=== PATIENT | male | born 1965 | race Two or more races ===

== ENCOUNTER 2025-08-13 10:44 | Outpatient (AMB) | payer OTHER, MEDICAID, SELFPAY ==
[2025-08-13 10:52] VITALS: BMI 29.4
--- NOTE | 2025-08-13 10:52 | A.PHYSOV_ITS ---
Vital Signs 08/13/25 10:52 Height 5 ft 10 in Weight 205 lb BMI 29.4 Intake Visit Reasons: 6M FUV Intake Note: 60 year old male here for his 6 month follow up visit on his back and neck pain. Today patient states his right side of neck pain is worse than sciatica pain Allergies No Known Allergies (No Known Allergies*) Allergy (Verified 08/13/25 10:50) Medication List - Last Reconciled 08/13/25 by Roberto Guzman, amitriptyline 25 mg PO BEDTIME amlodipine 5 mg PO DAILY cyclobenzaprine 10 mg PO TID PRN pregabalin mg PO simvastatin 10 mg PO BEDTIME HPI Comments Details: History of Present Illness The patient is a 60-year-old male presenting with persistent lower back pain referred to the right leg. The pain is associated with degenerative disc disease at the L5-S1 level, confirmed by a lumbosacral spine MRI on November 01, 2022, which also showed moderate facet arthropathy and a moderately large disc bulge with bilateral neural foraminal narrowing. The patient has a history of fibromyalgia and is currently on cyclobenzaprine. 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 A right L5 transforaminal injection on December 13, 2022, provided 40 to 60% pain relief at the time of the follow-up visit. He ambulates with a single-point cane and has been stable with his management. Meloxicam was discontinued after the patient was diagnosed with a transient ischemic attack (TIA) and possible microstroke. His blood pressure medications were adjusted, and he continues to take cyclobenzaprine. He has been having some pain and numbness in his right upper extremity. Cyclobenzaprine has been helpful for the most part. Occasionally it would make him drowsy. I reviewed his previous office notes. He will take ibuprofen occasionally as needed. However, it is not advisable with his past medical history. Pain Description - Onset: Persistent lower back pain referred to the right leg - Quality: Associated with degenerative disc disease and moderate facet arthropathy - Location: Lower back with radiation to the right leg - Relief: 40 to 60% pain relief from right L5 transforaminal injection Results - Imaging: Lumbosacral spine MRI on November 01, 2022, showed degenerative disc disease at L5-S1, moderate facet arthropathy, and moderately large disc bulge with bilateral neural foraminal narrowing [facility] Surgical History History of carpal tunnel release (Unknown) History of appendectomy (Unknown) Social History (Updated 08/13/25 @ 10:52 by Dora Kumar MA) Household Members: Spouse Alcohol intake: unknown Patient Tobacco Use Status: Never used Tobacco Current occupational status: retired Review of Systems Narrative Review of Systems - Musculoskeletal: Reports persistent lower back pain referred to the right leg - Neurological: Denies upper motor neuron signs Physical Exam Exam Exam: Physical Exam - General: Patient appears in acute distress, properly conversant and oriented - Musculoskeletal: Lumbar range of motion restricted in extension and side chayito ding - Neurological: Dural tension signs negative, distal pulses intact - Neurological: Non-focal examination of upper and lower extremities, no upper motor neuron signs - Neurological: Spurling maneuver positive on the right side - Cervical: Range of motion restricted in rotation and side bending to the right Vital Signs: BMI result Body Mass Index 29.4 Assessment & Plan Assessment & Plan (1) Cervical radiculitis: Code(s): M54.12 - Radiculopathy, cervical region Category: Medical (2) Lumbar radiculitis: Code(s): M54.16 - Radiculopathy, lumbar region Category: Medical (3) Lumbar disc herniation: Code(s): M51.26 - Other intervertebral disc displacement, lumbar region Category: Medical (4) Muscle spasm: Code(s): M62.838 - Other muscle spasm Category: Medical Plan Pain Management - Affect: Patient appears in acute distress - Analgesia: Currently on cyclobenzaprine and pregabalin, meloxicam discontinued - Adverse Effects: Meloxicam discontinued due to TIA diagnosis - Activities of Daily Living: Ambulates with a single-point cane, not working since 2021 Plan Patient was informed and verbally consented to the use of an ambient scribe for clinic note documentation during this visit. 1. Degenerative Disc Disease At L5-S1 The patient will continue with current pain management strategies, including cyclobenzaprine and pregabalin, to manage symptoms associated with degenerative disc disease at L5-S1. The right L5 transforaminal injection provided partial relief, and further injections may be considered based on symptom progression. 2. Fibromyalgia Management of fibromyalgia will continue with the current medication regimen, including cyclobenzaprine 3. Transient Ischemic Attack (Tia) Meloxicam was discontinued following the diagnosis of TIA, and blood pressure medications were adjusted to prevent future events. Discussion Notes During the visit, we discussed the patient's current pain management plan, including the continuation of cyclobenzaprine and pregabalin for degenerative disc disease and fibromyalgia. We reviewed the partial relief obtained from the right L5 transforaminal injection and considered the possibility of further injections if symptoms persist. The discontinuation of meloxicam due to the TIA diagnosis was also addressed, along with adjustments to blood pressure medications to mitigate future risks. Due to his prior history of TIA and possibly mini stroke, utilization of nonsteroidal anti-inflammatory medications is not recommended. Recommended daily supplementation with 2000 mg of turmeric with black pepper for anti-inflammatory effect. He will follow up in 6 months or sooner if necessary. Cyclobenzaprine was renewed today. Patient Instructions - Continue taking cyclobenzaprine and pregabalin as prescribed. - Monitor symptoms and report any changes or worsening of pain. - Follow up with primary care physician for blood pressure management. Medications: New cyclobenzaprine 10 mg PO TID PRN 270 tabs 1RF muscle spasm M51.26 - Other intervertebral disc displacement, lumbar region, M54.12 - Radiculopathy, cervical region, M54.16 - Radiculopathy, lumbar region, M62.838 - Other muscle spasm Coding Level of Care Code Est Pt Level 4 (05522) Complex EM visit Add On G2211 Diagnoses Cervical radiculitis M54.12 Lumbar radiculitis M54.16 Lumbar disc herniation M51.26 Muscle spasm M62.838
--- OUTSIDE RECORDS SUMMARY | 2025-08-13 12:26 | XMS_ITS | Encounter Summary ---
Author Organization [employer] Address [address] [place] [address] Care Team Providers Care District Fire Chief Name Role Phone Unavailable Primary Care Provider Unavailabl e Encounter Details Date Type Department Care Team (Latest Contact Info) Description 11/21/2019 Abstract [facility] CONVERSIONS Dental, Provider, DDS Social History Tobacco Use Types Packs/Day Years Used Date Smoking Tobacco: Never Assessed Sex and Gender Information Value Date Recorded Sex Assigned at Male 08/02/2022 10:35 AM EDT Legal Sex Male 10:35 AM EDT Gender Identity Male 08/02/2022 10:35 AM EDT Sexual Orientation Straight 08/02/2022 10 :35 AM EDT documented as of this encounter Plan of Treatment Upcoming Encounters Date Type Department Care Team (Late st Contact Info) Description 12/06/2025 9:30 AM EST Office Visit [facility] ADULT DENTAL [address] [place] [address] Jan Cano documented as of this encounter Visit Diagnoses Not on filedocumented in this encounter
--- OUTSIDE RECORDS SUMMARY | 2025-08-13 12:26 | XMS_ITS | Clinical Summary ---
Author Organization [employer] Address [address] [facility] [address] [place] [address] Care Team Providers Care Accordion Repairer Name Role Phone Unavailable Primary Care Provider Unavailabl e Allergies No known active allergies Medications pregabalin (Lyrica) 75 MG capsule PLEASE SEE ATTACHED FOR DETAILED DIRECTIONS 3 Active simvastatin (Zocor) 10 MG tablet Take 10 mg by mouth at bedtime. 3 Active meloxicam (Mobic) 15 MG tablet Take 15 mg by mouth in the morning. 3 Active cyclobenzaprine (Flexeril) 10 MG tablet TAKE 1 TABLET BY MOUTH AT BEDTIME NEEDED FOR MUSCLE SPASMS. 3 Active amLODIPine (Norvasc) 2.5 MG tablet Take 2.5 mg by mouth in the morning. 3 Active gabapentin (Neurontin) 300 MG capsule TAKE 1 CAPSULE BY MOUTH DAILY NEEDED (PAIN). 3 Active amitriptyline (Elavil) 25 MG tablet Take 25 mg by mouth at bedtime. 3 Active amLODIPine (Norvasc) 2.5 MG tablet Take 1 tablet by mouth at bed time. Active pregabalin (Lyrica) 225 MG capsule 4 Active Active Problems No known active problems Encounters Date Type Department Care Team Description 07/04/2025 10:00 AM EDT Office Visit [facility] ADULT DENTAL [address] [place] [address] Stuart Burns DDS 06/07/2025 10:00 AM EDT Office Visit [facility] ADULT DENTAL [address] [place] [address] Jan Cano Dental calculus (Primary Dx) from Last 3 Months Social History Tobacco Use Types Packs/Day Years Used Date Smoking Tobacco: Never Smokeless Tobacco: Never Tobacco Cessation:Counseling Given: Not Answered Sex and Gender Information Value Date Recorded Sex Assigned at Male 08/02/2022 10:35 AM EDT Legal Sex Male 10:35 AM EDT Gender Identity Male 08/02/2022 10:35 AM EDT Sexual Orientation Straight 08/02/2022 10 :35 AM EDT Last Filed Vital Signs Vital Sign Reading Time Taken Comments Blood Pressure 132/78 07/04/2025 10:09 AM EDT Pulse 66 06/07/2025 10:09 AM EDT Temperature - - Respiratory Rate - - Oxygen Saturation - - Inhaled Oxygen Concentration - - Weight - - Height - - Body Mass Index - - Plan of Treatment Upcoming Encounters Date Type Department Care Team (Late st Contact Info) Description 12/06/2025 9:30 AM EST Office Visit [facility] ADULT DENTAL [address] [place] [address] Jan Cano Health Maintenance Due Date Last Done Comments CT Colonography 1966 Colonoscopy 1966 Colorectal Cancer Screening 1966 Depression Screening 1966 FIT DNA/Cologuard 1966 FIT 1966 FOBT 1966 HIV Screening 1966 Lipid Panel 1966 SDOH Screening 1966 Sigmoidoscopy 1966 Disability Screening 1966 Alcohol/Substance Use Screening 1978 Hepatitis C Screening 1984 Hepatitis B Vaccines (1 of 3 - 19+ 3-dose series) 1985 Pneumococcal Vaccine: 50+ Years (1 of 1 - PCV) 2016 COVID-19 Vaccine (2 - 2024- season) 2025 01/12/2021 Influenza Vaccine (#1) 2025 Dental X-Ray: Bitewings 11/24/2025 11/23/19 25, 08/12/2023, 04/23/2019 Dental Oral Exam 12/06/2025 06/07/2025, , 01/24/2024, Additional history exists Dental Prophylaxis 12/06/2025 06/07/2025, 0 11/23/2024, 02/08/2024, Additional history exists Tobacco Screening 07/04/2026 07/04/2025 Dental X-Ray: Full Mouth 11/24/2027 11/23/2024, 04/03 DTaP/Tdap/Td Vaccines (3 - Td or Tdap) 07/12/2033 07/12/2023, 09/01/2010 RSV Patients and Patients Aged 60 years or older (1 - 1-dose 75+ series) 2041 Zoster Vaccines Completed 05/14/2024, 01/25/2024 HIB Vaccines Aged Out No longer eligi ble based on patient's age to complete this topic HPV Vaccines Aged Out No longer eligi ble based on patient's age to complete this topic Hepatitis A Vaccines Aged Out No long er eligible based on patient's age to complete this topic IPV Vaccines Aged Out No longer eligi ble based on patient's age to complete this topic Meningococcal B Vaccine Aged Out No l onger eligible based on patient's age to complete this topic Meningococcal Vaccine Aged Out No maame titus eligible based on patient's age to complete this topic RSV under 20 months Aged Out No longe r eligible based on patient's age to complete this topic Rotavirus Vaccines Aged Out No longer eligible based on patient's age to complete this topic Procedures Procedure Name Priority Date/Time Associated Diagnosis Comments 2 MOBL RESIN-BASED COMPOSITE - 4+ SURF, POSTERIOR Routine 07/04/2025 10:00 AM EDT CASE PRESENTATION, DETAILED AND EXTENSIVE TREATMENT PLANNING Routine 07/04/2025 10:00 AM EDT ORAL HYGIENE INSTRUCTIONS Routine 2024 10:00 AM EDT CASE PRESENTATION, DETAILED AND EXTENSIVE TREATMENT PLANNING Routine 06/07/2025 10:00 AM EDT PERIODIC ORAL EVALUATION - ESTABLISHED PATIENT Routine 06/07/2025 10:00 AM EDT PROPHYLAXIS - ADULT Routine 06/07/2025 1 0:00 AM EDT INTRAORAL - COMPLETE SERIES OF RADIOGRAPHIC IMAGES Routine 11/23/2024 11:00 AM EST from Last 3 Months or Most Recently Relevant to Health Maintenance Insurance [place] AD[place]
--- OUTSIDE RECORDS SUMMARY | 2025-08-13 12:26 | XMS_ITS | Encounter Summary ---
Author Organization [employer] Address [address] [facility] [address] [place] [address] Care Team Providers Care Client Service Professional Name Role Phone Unavailable Primary Care Provider Unavailabl e Encounter Details Date Type Department Care Team (Latest Contact Info) Description 04/23/2019 Abstract [facility] CONVERSIONS Dental, Provider, DDS Social History Tobacco [...] Description 12/06/2025 9:30 AM EST Office Visit [facility] ADULT DENTAL [address] [place] [address] Jan Cano documented as of this encounter Visit Diagnoses Not on filedocumented in this encounter
--- OUTSIDE RECORDS SUMMARY | 2025-08-13 12:26 | XMS_ITS | Clinical Summary ---
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 Life supply-pressure 6-16 Active cyclobenzaprine (FLEXERIL) 10 mg tablet TAKE 1 TABLET BY MOUTH AT BEDTIME NEEDED FOR MUSCLE SPASMS. 4 Active meloxicam (MOBIC) 15 mg tablet Take 1 Tablet by mouth daily. 4 Active pregabalin (LYRICA) 225 mg capsule TAKE 1 CAPSULE BY MOUTH AT BEDTIME MAY CAUSE DROWSINESS, DO NOT DRIVE OR OPERATE HEAVY MACHINERY 3 Active amLODIPine (NORVASC) 5 mg tablet Take 1 tablet (5 mg total) by mouth 1 (one) time each day. 90 tablet 1 5 Active simvastatin (ZOCOR) 10 mg tablet Take 1 tablet (10 mg total) by mouth at bedtime. 90 tablet 1 5 Active amitriptyline (ELAVIL) 25 mg tablet Take 1 tablet (25 mg total) by mouth at bedtime. 90 tablet 5 Active sodium,potassiu m,mag sulfates (Suprep Bowel Prep Kit) 17.5-3.13-1.6 gram recon soln bowel prep kit oral solution Take 177ML by mouth for 2 doses. SEE INSTRUCTIONS PROVIDED BY OFFICE. 1 kit Active Active Problems Problem Noted Date Diagnosed Date Overweight (BMI 25.0-29.9) 10/28/2024 Lumbar degenerative disc disease 11/12/2022 Overview (08/13/2024): Last Assessment & Plan: Mr. Jessica has low back pain as well as some pain and tingling in the right lower extremity. By MRI analysis he has degenerative changes including desiccation and loss of height at L5-S1 worse than at L4-5. There is mild bilateral lateral recess stenosis at L5-S1 but no nerve root impingement. He is not a candidate for neurosurgical intervention at this time and I think most of his pain is actually coming from the hip, bursitis, and sacroiliitis. He is welcome to follow-up with us in the future on an as-needed basis. Right hip pain 11/12/2022 Overview (08/13/2024): Last Assessment & Plan: Mr. Jessica had pain in his right leg with internal and external rotation of the right hip. I will send him for x-rays of the right hip. He will follow-up with Asa Escobar PA-C regarding his hip pain, bursitis, and sacroiliitis. Sacroiliitis ([facility] V24) 11/12/2022 Overview (08/13/2024): Last Assessment & Plan: Mr. Jessica had significant reproduction of his pain with palpation of the right SI joint. I gave him a prescription for physical therapy and he may benefit from a right SI joint injection. Trochanteric bursitis of right hip 11/12/2022 Overview (08/13/2024): Last Assessment & Plan: Mr. Jessica had pain with palpation of his right greater trochanteric bursa. We discussed anti-inflammatory use. I gave him a prescription for physical therapy and he may benefit from a steroid injection. 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 Associated with likely false positive MARA. Fibromyalgia 03/24/2021 Overview (08/13/2024): [facility] Bilateral carpal tunnel syndrome 11/21/2020 Overview (08/13/2024): NCV 11/21/2020 Obstructive sleep apnea 04/04/2017 Overview (08/13/2024): [facility] Polysomnogram: Date 03/29/2017; Wt 208# SE 86%; SM 88%; REM 22%; RDI 25 (AHI 23), worse in nonREM (RDI 25 - AHI 23), Central apneas 0; Obstructive apneas 39; Mixed apneas 0; hypopneas 92; RERAs 12; average oxygen saturation 94% (lowest 79% - without saturations <88% for 5% or more of study); PLMs 3. Essential hypertension 02/07/2017 Encounters Date Type Department Care Team Description 07/25/2025 9:51 AM EDT Anesthesia Event [facility] [address] [place] [phone] Tristan Thompson MD 07/25/2025 7:52 AM EDT - 07/25/2025 11:59 PM EDT Hospital Encounter [facility] [address] [place] [phone] Nora Silvestre MD Dasilva, John E, MD Steele, Matthew G, CRNA Hx of colonic polyps Discharge Disposition: Home or Self Care 07/23/2025 Telephone Pulmonology - [place] [address] [facility] [address] [place] [phone] Adela Sanchez, SERGEY from Last 3 Months Immunizations Immunization Administration Dates Next Due [facility]/Interventional Imaging SARS-CoV-2 COVID -19, vector-nr, rS-Ad26, preservative free 01/12/2021 Tdap Tetanus diptheria acell ular pertussis (Boostrix; Adacel) 7yo and older 07/12/2023,09/01/2010 Zoster recombinant (Shingrix) 19yo and older 09/2024,01/25/2024 Surgical History Surgery Date Site/Laterality Comments APPENDECTOMY 1999 PROCEDURE: HISTORICAL APPENDECTOMY Medical History Medical History Date Comments DDD (degenerative disc disea se), cervical 07/02/2022 DX:DDD (degenerative disc di sease), cervical; COMMENT: With radiculopathy HTN (hypertension) CASTILLO (obstructive sleep apnea) Fibromyalgia Carpal tunnel syndrome Trochanteric bursitis of right hip Sacroiliitis (CMS/HCC V24) Hyperlipemia Anticardiolipin antibody positive Family History Medical History Relation Name Comments Diabetes Father peripheral vasc ular disease Asthma Mother Breast cancer Neg Hx Colon cancer Neg Hx Prostate cancer Neg Hx Relation Name Status Comments Father Mother Alive Social History Tobacco Use Types Packs/Day Years Used Date Smoking Tobacco: Never Smokeless Tobacco: Never Tobacco Cessation:Counseling Given: Not Answered Alcohol Use Standard Drinks/Week Comments Yes 3 (1 standard drink = 0.6 oz pur e alcohol) Housing Instability Answer Date Recorde d Are you worried that in the next 2 months you may not have stable housing? No 05/08/2025 Food Access & Nutrition Answer Date Rec orded Do you have access to a vari ety of food including fruits and vegetables? Yes 05/08/2025 Health Literacy Answer Date Recorded How often do you need to hav e someone help you when you read instructions, pamphlets, or other written material from your doctor or pharmacy? Never 05/08/2025 Caregiver: How often do you need to have someone help you when you read instructions, pamphlets, or other written material from your doctor or pharmacy? Not on file 05/08/2025 Financial Risk Answer Date Recorded How hard is it for you to pa y for the very basics like food, housing, medical care, and air conditioning / heating? Not very hard 05/08/2025 Transportation Answer Date Recorded Has the lack of transportati on kept you from meetings, work, or from getting things needed for daily living? No Has the lack of transportati on kept you from medical appointments or from getting medications? No 05/08/2025 Social Isolation Answer Date Recorded How often do you feel lonely or isolated from th ose around you? Never 05/08/2025 Food Risk Answer Date Recorded Within the past 12 months we worried whether our food would run out before we got money to buy more. Never true 05/08/2025 Within the past 12 months th e food we bought just didn't last and we didn't have money to get more. Never true 05/08/2025 Dependent Care Answer Date Recorded Do you need help finding or paying for care for your loved ones. For example, child care worker or elderly care for an older adult? No 05/08/2025 Education Answer Date Recorded Do you think completing more education or training, like finishing a GED, going to college, or learning a trade, would be helpful for you? No 05/08/2025 Employment and Income Answer Date Recor ded During the last four weeks, have you been actively looking for work? No 05/08/2025 Living Situation Answer Date Recorded What is your living situation? Unrecognized valu e 05/08/2025 Interpersonal Safety Answer Date Record ed Physical Abuse Unrecognized value 07/25/2025 Verbal Abuse Unrecognized value 07/25/2025 Sex and Gender Information Value Date Recorded Sex Assigned at Not on file Legal Sex Male 10:47 PM EST Gender Identity Not on file Sexual Orientation Not on file Obstetrics History Last Filed Vital Signs Vital Sign Reading Time Taken Comments Blood Pressure 129/89 07/25/2025 10:40 AM EDT Pulse 76 07/25/2025 10:40 AM EDT Temperature 36.3 C (97.3 F) 07/25/2025 8:41 AM EDT Respiratory Rate 18 07/25/2025 10:40 AM EDT Oxygen Saturation 100% 07/25/2025 10:40 AM EDT Inhaled Oxygen Concentration - - Weight 93 kg (205 lb) 07/25/2025 8:41 AM EDT Height 177.8 cm (5' 10 ) 07/25/2025 8:41 AM EDT Body Mass Index 29.41 07/25/2025 8:41 AM EDT Plan of Treatment Upcoming Encounters Date Type Department Care Team (Late st Contact Info) Description 11/08/2025 11:25 AM EST Office Visit Pulmonology - [place] [address] [place] [address] Adela Sanchez NP [address] [place] [address] 11/12/2025 11:00 AM EST Office Visit Adult Medicine [facility] [address] [place] [phone] Karen Coker MD [address] [place] [phone] Health Maintenance Due Date Last Done Comments Hepatitis B Vaccines (1 of 3 - 19+ 3-dose series) 1985 Pneumococcal Vaccine: 50+ Years (1 of 1 - PCV) 2016 Influenza Vaccine (#1) 2025 Hypertension/CHF/CAD Annual BMP Blood Test 10/29/2025 10/29/2024, 07/14/2023 Social Influencers of Health Screening 05/08/2026 05/08/2025 Cholesterol Screening (Lipid Panel) 10/29/2029 10/29/2024, 07/14/2023 Colorectal Cancer Screening: Colonoscopy 07/25/2030 07/25/2025, 09/25/2019 Medicare Annual Wellness Visit 2031 Postponed from 09/11 (Not clinically appropriate to address at this time) DTaP,Tdap,and Td Vaccines (3 - Td or Tdap) 07/12/2033 07/12/2023, 09/01/2010 RSV Immunization Adult Patients (1 - 1-dose 75+ series) 2041 HIV Screening Completed 04/26/2019 Hepatitis C Screening Completed 04/26/2019 COVID-19 Vaccine Discontinued 01/12/2021 Zoster Vaccines Completed 05/14/2024, 01/25/2024 Depression Screening Completed 05/08/2025, 04/04/2024 HIB Vaccines Aged Out No longer eligi [...] on patient's age to complete this topic MMR Vaccines Aged Out No longer eligi ble based on patient's age to complete this topic Meningococcal ACWY Vaccine Aged Out N o longer eligible based on patient's age to complete this topic Meningococcal B Vaccine Aged Out No l onger eligible based on patient's age to complete this topic RSV Immunization Patients Under 20 months Aged Out No longer eligible b ased on patient's age to complete this topic Varicella Vaccines Aged Out No longer eligible based on patient's age to complete this topic Goals Goal Patient Goal Type Associated Problems Recent Progress Patient-Stated? Author Autogenera amanda Goal Care Plan Autogenerated Problem No SonaliAlison Procedures Procedure Name Priority Date/Time Associated Diagnosis Comments COLONOSCOPY Routine 07/25/2025 10:19 AM EDT Hx of colonic polyps TISSUE EXAM Routine 07/25/2025 10:06 AM EDT Hx of colonic polyps COMPREHENSIVE METABOLIC PANEL Routine 10/29/2024 9:55 AM EST Essential hypertension LIPID PANEL WITH REFLEX TO DIRECT LDL Routine 10/29/2024 9:55 AM EST Essential hypertension DEPRESSION SCREENING Routine 04/04/2024 HEPATITIS C SCREENING Routine 04/26/2019 HIV SCREENING Routine 04/26/2019 from Last 3 Months or Most Recently Relevant to Health Maintenance Results * COLONOSCOPY Anesthesia - MAC; [facility] (07/25/2025 10:19 AM EDT) Anatomical Region Laterality Modality Endoscopy 07/25/2025 9:57 AM EDT Impressions 07/25/2025 10:21 AM EDT - Two diminutive polyps in the sigmoid colon and in the cecum, removed with a cold snare. Resected and retrieved. - The examination was otherwise normal on direct and retroflexion views. Recommendation: - Discharge patient to home. - Await pathology results. - Repeat colonoscopy in 7-10 years for surveillance. Narrative 07/25/2025 10:21 AM EDT [facility] Patient Name: Bo Jessica Procedure Date: 07/25/2025 9:57 AM Date of : 1965 Age: 60 Gender: Male Note Status: Finalized Attending MD: Nora Silvestre MD, Procedure Date No Time: 07/25/2025 Procedure: Colonoscopy Indications: High risk colon cancer surveillance: Personal history of colonic polyps Providers: Nora Silvestre MD Referring MD: Nora Silvestre MD Medicines: Monitored Anesthesia Care Complications: No immediate complications. Estimated blood loss: Minimal. Estimated Blood Loss: Estimated blood loss was minimal. Procedure: Pre-Anesthesia Assessment: - Prior to the procedure, a History and Physical was performed, and patient medications and allergies were reviewed. The patient is competent. The risks and benefits of the procedure and the sedation options and risks were discussed with the patient. All questions were answered and informed consent was obtained. Patient identification and proposed procedure were verified by the physician, the nurse, the tetryl blender operator and the automotive technician in the pre-procedure area in the endoscopy suite. Mental Status Examination: alert and oriented. Airway Examination: normal oropharyngeal airway and neck mobility. Respiratory Examination: clear to auscultation. CV Examination: normal. Prophylactic Antibiotics: The patient does not require prophylactic antibiotics. Prior Anticoagulants: The patient has taken no anticoagulant or antiplatelet agents. ASA Grade Assessment: II - A patient with mild systemic disease. After reviewing the risks and benefits, the patient was deemed in satisfactory condition to undergo the procedure. The anesthesia plan was to use monitored anesthesia care (MAC). Immediately prior to administration of medications, the patient was re-assessed for adequacy to receive sedatives. The heart rate, respiratory rate, oxygen saturations, blood pressure, adequacy of pulmonary ventilation, and response to care were monitored throughout the procedure. The physical status of the patient was re-assessed after the procedure. After I obtained informed consent, the scope was passed under direct vision. Throughout the procedure, the patient's blood pressure, pulse, and oxygen saturations were monitored continuously. The Olympus Colonoscope was introduced through the anus and advanced to the cecum, identified by appendiceal orifice and ileocecal valve. The colonoscopy was performed without difficulty. The patient tolerated the procedure well. The quality of the bowel preparation was good. Findings: The perianal and digital rectal examinations were normal. Two sessile polyps were found in the sigmoid colon and cecum. The polyps were diminutive in size. These polyps were removed with a cold snare. Resection and retrieval were complete. Estimated blood loss was minimal. The exam was otherwise without abnormality on direct and retroflexion views. Procedure Code(s): --- Professional --- 88424, Colonoscopy, flexible; with removal of tumor(s), polyp(s), or other lesion(s) by snare technique Diagnosis Code(s): --- Professional --- D12.5, Benign neoplasm of sigmoid colon D12.0, Benign neoplasm of cecum CPT copyright 2020 [employer]. All rights reserved. The codes documented in this report are preliminary and upon blasting miner review may be revised to meet current compliance requirements. Nora Silvestre MD 07/25/2025 10:20:51 AM This report has been signed electronically.Nora Silvestre MD Number of Addenda: 0 Note Initiated On: 07/25/2025 9:57 AM Scope Withdrawal Time: 0 hours 14 minutes 44 seconds Scope In: 10:01:27 AM Scope Out: 10:17:31 AM Endoscopy Department at [facility] - [address] [place] [phone] Procedure Note Nora Silvestre MD - 07/25/2025 [facility] GI Patient Name: Bo Jessica Procedure Date: 07/25/2025 9:57 AM Date of : 1965 Age: 60 Gender: Male Note Status: Finalized Attending MD: Nora Silvestre MD, Procedure Date No Time: 07/25/2025 Procedure: Colonoscopy Indications: High risk colon cancer surveillance: Personalhistory of colonic polyps Providers: Nora Silvestre MD Referring MD: Nora Silvestre MD Medicines: Monitored Anesthesia Care Complications: No immediate complications. Estimated blood loss: Minimal. Estimated Blood Loss: Estimated blood loss was minimal. Procedure: Pre-Anesthesia Assessment: - Prior to the procedure, a History and Physicalwas performed, and patient medications and allergieswere reviewed. The patient is competent. The risks and benefits of the procedure and the sedation optionsand risks were discussed with the patient. Allquestions were answered and informed consent was obtained. Patient identification and proposed procedure were verified by the physician, the nurse, theanesthetist and the automotive technician in the pre-procedure area in the endoscopy suite. Mental Status Examination: alertand oriented. Airway Examination: normal oropharyngeal airway and neck mobility. Respiratory Examination: clear to auscultation. CV Examination: normal. Prophylactic Antibiotics: The patient does notrequire prophylactic antibiotics. Prior Anticoagulants: The patient has taken no anticoagulant or antiplatelet agents. ASA Grade Assessment: II - A patient withmild systemic disease. After reviewing the risks and benefits, the patient was deemed in satisfactory condition to undergo the procedure. The anesthesia plan was to use monitored anesthesia care (MAC). Immediately prior to administration of medications, the patient was re-assessed for adequacy to receive sedatives. The heart rate, respiratory rate, oxygen saturations, blood pressure, adequacy of pulmonary ventilation, and response to care were monitored throughout the procedure. The physical status ofthe patient was re-assessed after the procedure. After I obtained informed consent, the scope was passed under direct vision. Throughout theprocedure, the patient's blood pressure, pulse, and oxygen saturations were monitored continuously. TheOlympus Colonoscope was introduced through the anus and advanced to the cecum, identified by appendiceal orifice and ileocecal valve. The colonoscopy was performed without difficulty. The patient tolerated the procedure well. The quality of the bowel preparation was good. Findings: The perianal and digital rectal examinations were normal. Two sessile polyps were found in the sigmoid colonand cecum. The polyps were diminutive in size. These polyps were removed with a cold snare. Resectionand retrieval were complete. Estimated blood loss was minimal. The exam was otherwise without abnormality ondirect and retroflexion views. Procedure Code(s): --- Professional --- 26649, Colonoscopy, flexible; with removal of tumor(s), polyp(s), or other lesion(s) by snare technique Diagnosis Code(s): --- Professional --- D12.5, Benign neoplasm of sigmoid colon D12.0, Benign neoplasm of cecum CPT copyright 2020 [employer]. All rights reserved. The codes documented in this report are preliminary and upon blasting miner reviewmay be revised to meet current compliance requirements. Nora Silvestre MD 07/25/2025 10:20:51 AM This report has been signed electronically.Nora Silvestre MD Number of Addenda: 0 Note Initiated On: 07/25/2025 9:57 AM Scope Withdrawal Time: 0 hours 14 minutes 44 seconds Scope In: 10:01:27 AM Scope Out: 10:17:31 AM Endoscopy Department at [facility] - [address] [place] [phone] IMPRESSION: - Two diminutive polyps in the sigmoid colon and in the cecum, removed with a cold snare. Resected and retrieved. - The examination was otherwise normal on directand retroflexion views. Recommendation: - Discharge patient to home. - Await pathology results. - Repeat colonoscopy in 7-10 years forsurveillance. Nora Silvestre MD GI~PROCEDURE ORDERABLES Fin al Result * Tissue exam (07/25/2025 10:06 AM EDT) Final Diagnosis A. Large Intestine, Cecum, polyp x1 via cold snare: - Tubular adenoma. B. Large Intestine, Sigmoid Colon, polyp x1 via cold snare: - Tubular adenoma. 07/26/2025 10:20 AM EDT [facility] at 1020 EDT Gross Description A. Large Intestine, Cecum, polyp x1 via cold snare: Labeled polyp x 1 colon cecum . Received in formalin are two soft, camacho, polypoid tissue fragments measuring approximately 0.25-0.3 cm in greatest diameter, which are wrapped in paper and submitted in toto in one cassette, two pieces, multiple levels. B. Large Intestine, Sigmoid Colon, polyp x1 via cold snare: Labeled polyp x 1 Sig colon . Received in formalin are two soft, friable, camacho, polypoid tissue fragments measuring 0.15 cm and 0.45 cm in greatest diameter, which are wrapped in paper and submitted in toto in one cassette, two pieces, multiple levels. TS 07/26/2025 10:20 AM EDT [facility] Disclaimer Unless otherwise specified, all tissue is 10% NB formalin fixed and paraffin embedded. 07/26/2025 10:20 AM EDT [facility] Tissue Cecum structure / Unknown 07/25/2025 10:06 AM EDT 07/25/2025 11:11 AM EDT Tissue specimen (specimen) Sigmoid colon structure / Unknown 07/25/2025 10:15 AM EDT 07/25/2025 11:11 AM EDT us Nora Silvestre MD LAB PATHOLOGY ORDERABLES Fi nal Result [facility] [address] [place] [address], [place] [phone] * (ABNORMAL) Lipid panel with reflex to direct LDL (10/29/2024 9:55 AM EST) Cholesterol 115 0 - 200 mg/dL LAB CHEMISTRY METHOD 10/29/2024 3:29 PM [facility] Triglycerides 120 0 - 150 mg/dL LAB CHEMISTRY METHOD 10/29/2024 3:29 PM [facility] HDL 32(L) >=40 mg/dL LAB CHEMISTRY METHOD 10/29/2024 3:29 PM [facility] LDL Calculated 59 0 - 100 mg/dL LAB CHEMISTRY METHOD 10/29/2024 3:29 PM [facility] VLDL Cholesterol Marcos 24 mg/dL LAB CHEMISTRY METHOD 10/29/2024 3:29 PM [facility] Non HDL Chol. (LDL+VLDL) 83 <145 mg/dL LAB CHEMISTRY METHOD 10/29/2024 3:29 PM [facility] Chol/HDL Ratio 3.6 0.0 - 4.4 LAB CHEMISTRY METHOD 10/29/2024 3:29 PM [facility] Blood Venous blood specimen / Unknown Venipuncture / Unknown 10/29/2024 9:55 AM EST 10/29/2024 9:55 AM EST us Karen Coker MD LAB BLOOD ORDERABL ES Final Result [facility] [address] [place] [address], [place] [phone] * (ABNORMAL) Comprehensive metabolic panel (10/29/2024 9:55 AM EST) Sodium 137 133 - 145 mmol/L LAB CHEMISTRY METHOD 10/29/2024 3:29 PM [facility] Potassium 3.8 3.5 - 5.5 mmol/L LAB CHEMISTRY METHOD 10/29/2024 3:29 PM [facility] Chloride 103 96 - 110 mmol/L LAB CHEMISTRY METHOD 10/29/2024 3:29 PM [facility] CO2 30 21 - 32 mmol/L LAB CHEMISTRY METHOD 10/29/2024 3:29 PM [facility] Anion Gap 4 3 - 11 LAB CHEMISTRY METHOD 10/29/2024 3:29 PM [facility] Glucose 102(H) 70 - 100 mg/dL LAB CHEMISTRY METHOD 10/29/2024 3:29 PM [facility] BUN 10 5 - 25 mg/dL LAB CHEMISTRY METHOD 10/29/2024 3:29 PM [facility] Creatinine 0.93 0.70 - 1.30 mg/dL LAB CHEMISTRY METHOD 10/29/2024 3:29 PM [facility] eGFR 95 >=60 mL/min/1. 73m2 LAB CHEMISTRY METHOD 10/29/2024 3:29 PM [facility] Comment:Calculation based on the Chronic Kidney Disease Epidemiology Collaboration (CKD-EPI) equation refit without adjustment for race. BUN/Creatinine Ratio 10.8 LAB CHEMISTRY METHOD 10/29/2024 3:29 PM [facility] Calcium 9.1 8.5 - 10.5 mg/dL LAB CHEMISTRY METHOD 10/29/2024 3:29 PM [facility] AST (SGOT) 21 10 - 42 unit/L LAB CHEMISTRY METHOD 10/29/2024 3:29 PM [facility] ALT (SGPT) 48 10 - 60 unit/L LAB CHEMISTRY METHOD 10/29/2024 3:29 PM [facility] Alkaline Phosphatase 66 42 - 121 unit/L LAB CHEMISTRY METHOD 10/29/2024 3:29 PM [facility] Total Protein 7.5 6.0 - 8.0 g/dL LAB CHEMISTRY METHOD 10/29/2024 3:29 PM [facility] Albumin 4.0 3.2 - 5.0 g/dL LAB CHEMISTRY METHOD 10/29/2024 3:29 PM [facility] Total Bilirubin 0.4 0.0 - 1.4 mg/dL LAB CHEMISTRY METHOD 10/29/2024 3:29 PM [facility] Blood Venous blood specimen / Unknown Venipuncture / Unknown 10/29/2024 9:55 AM EST 10/29/2024 9:55 AM EST Karen Coker MD LAB BLOOD ORDERABL ES Final Result [facility] [address] [place] [address], * Depression Screening (04/04/2024) Depression Screening Abstracted Historical Provider HEALTH MAINTENANCE Final Result * HIV Screening (04/26/2019) HIV Screening Abstracted Historical Provider HEALTH MAINTENANCE Final Result * Hepatitis C Screening (04/26/2019) Hepatitis C Screening Abstracted us Historical Provider HEALTH MAINTENANCE Final Result from Last 3 Months or Most Recently Relevant to Health Maintenance Additional Health Concerns Active Problems Noted Date Diagnosed Date Autogenerated Problem 07/01/2025 Insurance [place] Member Subscriber Plan / Payer (Ef fective 2025-Present) Name:BO JESSICA Relation to Subscriber:Self Name:Bo Jessica Payer ID:[id number] Group ID:Not on file Type:Not on file Address: [facility] ATTN:CLAIMS [address] [place] [id number] [employer] MED[employer]ARE Care Teams Metal Furniture [employer] Relationship Specialty Start Date End Date Karen Coker MD [address] [place] [phone] PCP - General Internal Medicine 08/31/24
== END 2025-08-13 11:20 | disposition home or self-care (01) ==
LOC: HO.HPHYS 10:45
PROVIDERS: PCP Internal Medicine; Visit Provider Physical Medicine & Rehabilitation
DX: M54.12 Radiculopathy, cervical region (principal); M54.16 Radiculopathy, lumbar region; M51.26 Other intervertebral disc displacement, lumbar region; M62.838 Other muscle spasm
CPT/HCPCS: 99214